=== PATIENT | male | born 1960 | race African-American/Black ===

== ENCOUNTER 2016-10-17 03:37 | Inpatient (IN) | payer OTHER ==
[~2016-10-17] VITALS: Ht 175.3 cm; Wt 83.7 kg
[~2016-10-17 03:37] MED LIST: Ecotrin PO; Norvasc PO; Pravachol PO; Zestril,Prinivil PO; Zocor PO
[2016-10-17 04:57] LABS: HEMATOCRIT 35.3 % (38.0-50.0); MCH 30.6 PG (29.0-34.0); MCHC 32.3 G/DL (30.0-36.0); MCV 94.9 FL (86-99); MEAN PLAT.VOLUME 10.5 uM^3 (9.0-12.4); PLATELET COUNT 297 K/uL (156-360); RBC DIS.WIDTH-CV 12.1 % (11.8-14.6); RBC DIS.WIDTH-SD 42.1 % (39-53); RED BLOOD COUNT 3.72 M/uL (4.00-5.50); WHITE BLOOD COUNT 5.7 K/uL (4.1-10.2)
[2016-10-17 05:12] LABS: CHLORIDE 105 mEq/L (99-109); POTASSIUM 3.7 mEq/L (3.7-5.4); SODIUM 136 mEq/L (136-147)
[2016-10-17 05:13] LABS: GLUCOSE 98 mg/dL (70-99)
[2016-10-17 05:15] LABS: ANION GAP 6 MEQ/L (2-14)
[2016-10-17 05:17] LABS: GFR ESTIMATE (CALCULATED) > 59 mL/min/
[2016-10-17 05:18] LABS: UREA NITROGEN (BUN) 16 mg/dL (9-23)
[2016-10-17 05:38] LABS: TOTAL BILIRUBIN 0.9 mg/dL (0.0-1.0)
[2016-10-17 05:39] LABS: ALKALINE PHOSPHATASE 55 IU/L (3-129)
[2016-10-17 05:42] LABS: DIRECT BILIRUBIN 0.2 mg/dL (0.0-0.3)
[2016-10-17 05:43] LABS: LIPASE 12 U/L (1.0-51.0); TROP-I INTERPRETATION NEGATIVE; TROPONIN-I < 0.01 ng/mL (0.0-0.30)
[2016-10-17 05:46] LABS: INTER. NORMALIZED RATIO 1.1; PTT 28.9 (25-32)
[2016-10-17 08:46] LABS: ADD MIUA? YES; BILIRUBIN NEGATIVE; BLOOD SMALL; COLOR YELLOW ((YELLOW)); GLUCOSE (STRIP) NEGATIVE; KETONES NEGATIVE; LEUKOCYTES NEGATIVE; NITRITE NEGATIVE; PROTEIN (STRIP) NEGATIVE; SPECIFIC GRAVITY 1.015 (1.000-1.030); UROBILINOGEN 0.2 MG/DL (0.2-1.0)
[2016-10-17 08:50] LABS: BACTERIA NONE SEEN /HPF; EPITHELIAL CELLS NONE SEEN /HPF; MUCUS TRACE /LPF; UCUL ADDED? NO; WHITE BLOOD CELLS 0-5 /HPF (0-5)
[2016-10-17 09:26] LABS: HDL CHOLESTEROL 42 MG/DL (Desirable>=40); LDL CHOLESTEROL 195 mg/dL (Desirable<100); NON-HDL CHOLESTEROL 210 mg/dL (Desirable<160); TOTAL CHOLESTEROL 252 mg/dL (Desirable<200); TRIGLYCERIDES 76 MG/DL (Normal: <150)
[2016-10-17 09:32] LABS: Estimated Average Glucose 94 mg/dL (70-123); HEMOGLOBIN A1c (GLYCOHEMOGLOB) 4.9 % HGB (Below 5.7)
[2016-10-17 13:50] VITALS: BP 152/77
[2016-10-17 19:27] VITALS: BP 123/78
[2016-10-17 23:41] VITALS: BP 141/89
[2016-10-18 03:28] VITALS: BP 159/95
[2016-10-18 06:48] LABS: HEMATOCRIT 39.4 % (38.0-50.0); MCH 30.6 PG (29.0-34.0); MCV 98.7 FL (86-99); RBC DIS.WIDTH-SD 43.7 % (39-53); RED BLOOD COUNT 3.99 M/uL (4.00-5.50); WHITE BLOOD COUNT 4.6 K/uL (4.1-10.2)
[2016-10-18 07:28] VITALS: BP 141/88
[2016-10-18 08:17] LABS: MEAN PLAT.VOLUME 11.4 uM^3 (9.0-12.4); PLATELET COUNT 224 K/uL (156-360)
[2016-10-18 11:52] VITALS: BP 138/84
[2016-10-18 15:45] VITALS: BP 140/82
[2016-10-18 19:27] VITALS: BP 131/85
[2016-10-18 23:21] VITALS: BP 142/86
[2016-10-19 03:26] VITALS: BP 143/92
[2016-10-19 08:04] VITALS: BP 152/88
[2016-10-19 16:00] VITALS: BP 136/81
[2016-10-19 20:11] VITALS: BP 132/88
[2016-10-19 23:50] VITALS: BP 140/83
[2016-10-20 03:59] VITALS: BP 147/84
[2016-10-20 08:03] VITALS: BP 162/91
[2016-10-20 11:10] VITALS: BP 116/79
[2016-10-20 15:22] VITALS: BP 131/87
[2016-10-20 20:12] VITALS: BP 136/82
[2016-10-21] VITALS: BP 150/94
[2016-10-21 04:33] VITALS: BP 150/85
[2016-10-21 08:12] VITALS: BP 142/89
[2016-10-21 16:05] VITALS: BP 135/79
[2016-10-21 23:47] VITALS: BP 127/84
[2016-10-22 07:38] VITALS: BP 134/64
[2016-10-22 15:16] VITALS: BP 122/70
[2016-10-23] VITALS: BP 124/84
[2016-10-23 07:24] VITALS: BP 120/80
[2016-10-23 09:23] LABS: ANION GAP 8 MEQ/L (2-14); CHLORIDE 104 MEQ/L (99-109); GFR ESTIMATE (CALCULATED) > 59 mL/min/; GLUCOSE 87 mg/dL (70-99); SAMPLE HEMOLYSIS CHECK 1; SAMPLE ICTERIC CHECK 0; SAMPLE LIPEMIA CHECK 0; SODIUM 136 MEQ/L (136-147); UREA NITROGEN (BUN) 19 mg/dL (9-23)
[2016-10-23 09:26] LABS: HEMATOCRIT 39.9 % (38.0-50.0); MCH 30.8 PG (29.0-34.0); MCHC 31.8 G/DL (30.0-36.0); MCV 96.8 FL (86-99); MEAN PLAT.VOLUME 12.3 uM^3 (9.0-12.4); PLATELET COUNT 184 K/uL (156-360); POTASSIUM 4.6 MEQ/L (3.7-5.4); RBC DIS.WIDTH-CV 12.4 % (11.8-14.6); RBC DIS.WIDTH-SD 44.2 % (39-53); RED BLOOD COUNT 4.12 M/uL (4.00-5.50); WHITE BLOOD COUNT 4.9 K/uL (4.1-10.2)
[2016-10-23 15:12] VITALS: BP 127/78
[2016-10-23 23:39] VITALS: BP 129/84
[2016-10-24 07:15] VITALS: BP 145/85
[2016-10-24] MEDS ORDERED: ATORVASTATIN CA40 MG PO (12:12)
[2016-10-24] MEDS ORDERED: ASPIR-LOW81 MG PO (12:12)
[2016-10-24] MEDS ORDERED: LISINOPRIL10 MG PO (12:12)
[2016-10-24] MEDS ORDERED: CLOPIDOGREL75 MG PO (12:12)
[2016-10-24 15:28] VITALS: BP 125/66
[2016-10-24] MEDS ORDERED: LOVENOX40 MG/0.4 SC (17:49)
[2016-10-24] MEDS ORDERED: MIRALAX17 GM PO ×2 (17:49→17:50)
== END 2016-10-24 16:32 | DRG 65 ==
LOC: EME 03:37 → 5SOUTH 07:35 → EDOF 07:35 → 5SOUTH 13:40
PROVIDERS: Emergency Medicine; Internal Medicine; Nurse Practitioner Adult Health
DX: I63.9 Cerebral infarction, unspecified (principal); G81.94 Hemiplegia, unspecified affecting left nondominant side; E11.9 Type 2 diabetes mellitus without complications; I10 Essential (primary) hypertension; E78.5 Hyperlipidemia, unspecified; R94.31 Abnormal electrocardiogram [ECG] [EKG]; F70 Mild intellectual disabilities; K21.9 Gastro-esophageal reflux disease without esophagitis; R29.810 Facial weakness; Z87.891 Personal history of nicotine dependence; Z88.2 Allergy status to sulfonamides
CPT/HCPCS: 70450; 70551; 71020; 80048; 80061; 80076; 81003; 83036; 83690; 84484; 85027; 85610; 85730; 92610 GN; 93005; 93306; 93880; 97530 GO; 97530 GP; 99281; 99285; J1650

== ENCOUNTER 2016-10-24 16:13 | Inpatient (IN) | payer OTHER ==
[~2016-10-24] VITALS: Ht 175.3 cm; Wt 82.6 kg
[~2016-10-24 16:13] MED LIST changes: +ASPIR-LOW81 MG PO; +ATORVASTATIN CA40 MG PO; +CLOPIDOGREL75 MG PO; +LISINOPRIL10 MG PO
[2016-10-24 16:45] VITALS: BP 130/19
[2016-10-24] MEDS ORDERED: MIRALAX17 GM PO ×2 (17:49→17:50)
[2016-10-24] MEDS ORDERED: LOVENOX40 MG/0.4 SC (17:49)
[2016-10-24 23:57] VITALS: BP 118/81
[2016-10-25 05:22] VITALS: BP 132/82
[2016-10-25 05:55] LABS: HEMATOCRIT 36.7 % (38.0-50.0); MCH 31.4 PG (29.0-34.0); MCHC 32.4 G/DL (30.0-36.0); MCV 96.8 FL (86-99); MEAN PLAT.VOLUME 11.5 uM^3 (9.0-12.4); PLATELET COUNT 182 K/uL (156-360); RBC DIS.WIDTH-CV 12.1 % (11.8-14.6); RBC DIS.WIDTH-SD 43.1 % (39-53); RED BLOOD COUNT 3.79 M/uL (4.00-5.50); WHITE BLOOD COUNT 5.2 K/uL (4.1-10.2)
[2016-10-25 06:23] LABS: ALKALINE PHOSPHATASE 57 IU/L (3-129); ANION GAP 7 MEQ/L (2-14); CHLORIDE 105 MEQ/L (99-109); GFR ESTIMATE (CALCULATED) > 59 mL/min/; GLUCOSE 88 mg/dL (70-99); POTASSIUM 4.3 MEQ/L (3.7-5.4); SAMPLE HEMOLYSIS CHECK 0; SAMPLE ICTERIC CHECK 0; SAMPLE LIPEMIA CHECK 0; SODIUM 140 MEQ/L (136-147); TOTAL BILIRUBIN 0.5 MG/DL (0.0-1.0); UREA NITROGEN (BUN) 17 mg/dL (9-23)
[2016-10-25 15:36] VITALS: BP 118/80
[2016-10-26 05:32] VITALS: BP 104/75
[2016-10-26 15:15] VITALS: BP 109/68
[2016-10-27 05:58] VITALS: BP 122/80
[2016-10-27 15:40] VITALS: BP 115/76
[2016-10-28 15:48] VITALS: BP 123/80
[2016-10-29 05:33] VITALS: BP 136/87
[2016-10-29 15:04] VITALS: BP 113/65
[2016-10-30 05:12] VITALS: BP 143/87
[2016-10-30 15:07] VITALS: BP 109/73
[2016-10-31 05:01] VITALS: BP 127/90
[2016-10-31 15:28] VITALS: BP 150/87
[2016-11-01 04:51] VITALS: BP 142/876
[2016-11-01 06:33] LABS: BASOPHIL COUNT 0.1 K/uL (0-0.1); EOSINOPHIL (%) 2.1 % (0-5); EOSINOPHIL COUNT 0.1 K/uL (0-0.3); HEMATOCRIT 42.9 % (38.0-50.0); IMMATURE GRANULOCYTE (%) 0.2 % (0.0-0.7); MCH 30.1 PG (29.0-34.0); MCHC 31.5 G/DL (30.0-36.0); MCV 95.5 FL (86-99); MEAN PLAT.VOLUME 11.4 uM^3 (9.0-12.4); MONOCYTE (%) 9.8 % (3-12); MONOCYTE COUNT 0.6 K/uL (0-0.8); NEUTROPHIL (%) 52.3 % (45-76); PLATELET COUNT 204 K/uL (156-360); RBC DIS.WIDTH-CV 11.9 % (11.8-14.6); RED BLOOD COUNT 4.49 M/uL (4.00-5.50); WHITE BLOOD COUNT 5.8 K/uL (4.1-10.2)
[2016-11-01 07:04] LABS: ALKALINE PHOSPHATASE 67 IU/L (3-129); ANION GAP 11 MEQ/L (2-14); CHLORIDE 104 MEQ/L (99-109); GFR ESTIMATE (CALCULATED) > 59 mL/min/; GLUCOSE 88 mg/dL (70-99); POTASSIUM 4.6 MEQ/L (3.7-5.4); SAMPLE HEMOLYSIS CHECK 1; SAMPLE ICTERIC CHECK 0; SAMPLE LIPEMIA CHECK 0; SODIUM 138 MEQ/L (136-147); TOTAL BILIRUBIN 0.4 MG/DL (0.0-1.0); UREA NITROGEN (BUN) 19 mg/dL (9-23)
[2016-11-01 15:35] VITALS: BP 123/81
[2016-11-02 05:59] VITALS: BP 117/70
[2016-11-02 15:38] VITALS: BP 108/71
[2016-11-03 05:19] VITALS: BP 124/81
[2016-11-03 16:22] VITALS: BP 111/69
[2016-11-04 05:12] VITALS: BP 145/87
[2016-11-04] MEDS ORDERED: MIRALAX17 GM PO (12:09)
[2016-11-04] MEDS ORDERED: SENNA PLUS TAB1 EACH PO (12:09)
[2016-11-04] MEDS ORDERED: CLOPIDOGREL75 MG PO (12:23)
[2016-11-04] MEDS ORDERED: ATORVASTATIN CA40 MG PO (12:23)
[2016-11-04] MEDS ORDERED: LISINOPRIL10 MG PO (12:23)
[2016-11-04] MEDS ORDERED: ASPIR-LOW81 MG PO (13:13)
[2016-11-04 16:18] VITALS: BP 115/75
== END 2016-11-04 17:04 | disposition home health service (06) | DRG 57 ==
LOC: 3WEST 16:13
PROVIDERS: Physical Medicine & Rehabilitation Pain Medicine; Psychiatry & Neurology Neurology
PROC: F07M0ZZ Range of Motion and Joint Mobility Treatment of Musculoskeletal System - Whole Body (ICD-10-PCS; principal; 2016-10-24)
DX: I69.354 Hemiplegia and hemiparesis following cerebral infarction affecting left non-dominant side (principal); I07.1 Rheumatic tricuspid insufficiency; I10 Essential (primary) hypertension; E78.5 Hyperlipidemia, unspecified; R26.9 Unspecified abnormalities of gait and mobility; F79 Unspecified intellectual disabilities; G40.909 Epilepsy, unspecified, not intractable, without status epilepticus; I51.7 Cardiomegaly; K04.7 Periapical abscess without sinus; M47.814 Spondylosis without myelopathy or radiculopathy, thoracic region; R94.31 Abnormal electrocardiogram [ECG] [EKG]; R01.1 Cardiac murmur, unspecified; K02.9 Dental caries, unspecified; I69.312 Visuospatial deficit and spatial neglect following cerebral infarction
CPT/HCPCS: 80053; 85025; 85027; 85651; 86140; 87040; 97110 GO; 97530 GP; J1650

== ENCOUNTER 2016-12-23 12:48 | Inpatient (IN) | payer OTHER ==
[~2016-12-23] VITALS: Ht 177.8 cm; Wt 79.9 kg
[~2016-12-23 12:48] MED LIST changes: +LOVENOX40 MG/0.4 SC; +MIRALAX17 GM PO; +SENNA PLUS TAB1 EACH PO
[2016-12-23 13:28] LABS: EOSINOPHIL (%) 0.3 % (0-5); HEMATOCRIT 38.1 % (38.0-50.0); IMMATURE GRANULOCYTE (%) 0.4 % (0.0-0.7); LYMPHOCYTE COUNT 1.1 K/uL (1.0-2.8); MCH 30.5 PG (29.0-34.0); MCHC 32.5 G/DL (30.0-36.0); MCV 93.6 FL (86-99); MEAN PLAT.VOLUME 11.2 uM^3 (9.0-12.4); MONOCYTE (%) 6.3 % (3-12); MONOCYTE COUNT 0.6 K/uL (0-0.8); NEUTROPHIL (%) 81.4 % (45-76); PLATELET COUNT 149 K/uL (156-360); RBC DIS.WIDTH-CV 11.8 % (11.8-14.6); RBC DIS.WIDTH-SD 40.8 % (39-53); RED BLOOD COUNT 4.07 M/uL (4.00-5.50); WHITE BLOOD COUNT 9.9 K/uL (4.1-10.2)
[2016-12-23 13:42] LABS: CHLORIDE 104 mEq/L (99-109); POTASSIUM 4.4 mEq/L (3.7-5.4); SODIUM 135 mEq/L (136-147)
[2016-12-23 13:45] LABS: GLUCOSE 111 mg/dL (70-99)
[2016-12-23 13:46] LABS: ANION GAP 10 MEQ/L (2-14); TOTAL BILIRUBIN 0.4 mg/dL (0.0-1.0)
[2016-12-23 13:47] LABS: SERUM ETHYL ALCOHOL < 10 mg/dL
[2016-12-23 13:48] LABS: ALKALINE PHOSPHATASE 64 IU/L (3-129); GFR ESTIMATE (CALCULATED) > 59 mL/min/
[2016-12-23 13:49] LABS: UREA NITROGEN (BUN) 18 mg/dL (9-23)
[2016-12-23 13:55] LABS: TROP-I INTERPRETATION NEGATIVE; TROPONIN-I < 0.01 ng/mL (0.0-0.30)
[2016-12-23 17:23] VITALS: BP 164/107
[2016-12-23 20:09] VITALS: BP 178/101
[2016-12-23 20:33] LABS: TROP-I INTERPRETATION NEGATIVE; TROPONIN-I < 0.01 ng/mL (0.0-0.30)
[2016-12-23 22:40] VITALS: BP 180/102
[2016-12-23 23:49] VITALS: BP 138/85
[2016-12-24] VITALS (8 sets, daily range): BP systolic 140–203; BP diastolic 72–136
[2016-12-24 01:52] LABS: TROP-I INTERPRETATION NEGATIVE; TROPONIN-I < 0.01 ng/mL (0.0-0.30)
[2016-12-24 03:13] LABS: ADD MIUA? NO; BILIRUBIN NEGATIVE; BLOOD NEGATIVE; COLOR YELLOW ((YELLOW)); GLUCOSE (STRIP) NEGATIVE; KETONES 20; LEUKOCYTES NEGATIVE; NITRITE NEGATIVE; PROTEIN (STRIP) NEGATIVE; SPECIFIC GRAVITY 1.019 (1.000-1.030); UCUL ADDED? NO; UROBILINOGEN 0.2 MG/DL (0.2-1.0)
[2016-12-24 03:33] LABS: AMPHETAMINES QUANT VALUE 0 NG/ML; BARBITUATES QUANT VALUE 0 NG/ML; BENZODIAZEPINES QUANT VALUE 0 NG/ML; BENZODIAZEPINES, URINE SCREEN Negative (200 ng/mL); MARIJUANA QUANT VALUE 0 NG/ML; OPIATES QUANTITATIVE VALUE 0 NG/ML; PHENCYCLIDINE QUANT VALUE 0 NG/ML
[2016-12-24 12:10] LABS: HDL CHOLESTEROL 53 MG/DL (Desirable>=40); LDL CHOLESTEROL 176 mg/dL (Desirable<100); NON-HDL CHOLESTEROL 189 mg/dL (Desirable<160); TOTAL CHOLESTEROL 242 mg/dL (Desirable<200); TRIGLYCERIDES 64 MG/DL (Normal: <150)
[2016-12-24 14:58] LABS: Estimated Average Glucose 94 mg/dL (70-123); HEMOGLOBIN A1c (GLYCOHEMOGLOB) 4.9 % HGB (Below 5.7)
[2016-12-24 22:47] LABS: POINT-OF-CARE METER ID UU14162636
[2016-12-24 23:18] LABS: METH RESISTANT S AUREUS PCR NEGATIVE (NEGATIVE)
[2016-12-24 23:19] LABS: PROBE CHECK PASS; SPECIMEN PROCESSING CONTROL PASS
[2016-12-25] VITALS (15 sets, daily range): BP systolic 109–189; BP diastolic 63–113
[2016-12-25 02:41] LABS: BASE EXCESS -1.8 mEq/L (-3 to +3); BICARBONATE 22.1 mEq/L (22-26); CARBOXY HGB 4.9 % (0-5); PCO2 34 mm Hg (35-45); PO2 247 mm Hg (80-100); pH 7.42 (7.35-7.45)
[2016-12-25 02:42] LABS: COMMENTS - BLOOD GASES A+C+; DEVICE 980VENT; FI02 80 %; MECHANICAL RATE 25 resp/min; MODE AC; PEEP 5 CM/H20; SITE LR; TIDAL VOLUME 500 ML; TOTAL RESP RATE 25 resp/min
[2016-12-25 09:29] LABS: HEMATOCRIT 36.9 % (38.0-50.0); MCH 30.9 PG (29.0-34.0); MCHC 33.1 G/DL (30.0-36.0); MCV 93.4 FL (86-99); MEAN PLAT.VOLUME 11.7 uM^3 (9.0-12.4); PLATELET COUNT 180 K/uL (156-360); RBC DIS.WIDTH-CV 12.2 % (11.8-14.6); RBC DIS.WIDTH-SD 41.8 % (39-53); RED BLOOD COUNT 3.95 M/uL (4.00-5.50); WHITE BLOOD COUNT 27.7 K/uL (4.1-10.2)
[2016-12-25 09:59] LABS: ANION GAP 10 MEQ/L (2-14); CHLORIDE 109 MEQ/L (99-109); GFR ESTIMATE (CALCULATED) > 59 mL/min/; GLUCOSE 142 mg/dL (70-99); POTASSIUM 3.9 MEQ/L (3.7-5.4); SAMPLE HEMOLYSIS CHECK 0; SAMPLE ICTERIC CHECK 0; SAMPLE LIPEMIA CHECK 0; SODIUM 142 MEQ/L (136-147); UREA NITROGEN (BUN) 13 mg/dL (9-23)
[2016-12-25 10:24] LABS: ABS NEUTROPHIL COUNT 25.8; BAND NEUTROPHILS 2.6 % (0-8.0); BASOPHILS 0.5 %; EOSINOPHIL ABS CT 0; INSTRUMENT ABS NEUTROPHIL CT 25.6 K/uL; LYMPHOCYTES 2.6 % (15.0-45.0); SEG.NEUTROPHILS 90.4 % (46.0-76.0); SMUDGE CELLS 0.4
[2016-12-25 11:38] LABS: BASE EXCESS 1.7 mEq/L (-3 to +3); BICARBONATE 22.5 mEq/L (22-26); CARBOXY HGB 1.8 % (0-5); METHEMOGLOBIN 2.1 % (0-1.5)
[2016-12-25 11:39] LABS: DEVICE VENTILATOR; FI02 0.65 %; MECHANICAL RATE 25 resp/min; MODE AC; PCO2 24 mm Hg (35-45); PO2 276 mm Hg (80-100); SITE A LINE; TOTAL RESP RATE 25 resp/min; pH 7.58 (7.35-7.45)
[2016-12-25 11:40] LABS: COMMENTS - BLOOD GASES C+; PEEP 5 CM/H20; TIDAL VOLUME 500 ML
[2016-12-25 14:00] LABS: BASE EXCESS 1.2 mEq/L (-3 to +3); BICARBONATE 22.4 mEq/L (22-26); CARBOXY HGB 1.5 % (0-5); PCO2 25 mm Hg (35-45); PO2 260 mm Hg (80-100)
[2016-12-25 14:01] LABS: COMMENTS - BLOOD GASES C+; DEVICE VENTILATOR; FI02 0.65 %; MECHANICAL RATE 20 resp/min; MODE AC; PEEP 5 CM/H20; SITE A LINE; TIDAL VOLUME 500 ML; TOTAL RESP RATE 20 resp/min; pH 7.56 (7.35-7.45)
[2016-12-25 16:04] LABS: BASE EXCESS 0.2 mEq/L (-3 to +3); BICARBONATE 23.3 mEq/L (22-26); CARBOXY HGB 1.6 % (0-5); METHEMOGLOBIN 1.9 % (0-1.5); pH 7.47 (7.35-7.45)
[2016-12-25 16:05] LABS: COMMENTS - BLOOD GASES C+; PCO2 32 mm Hg (35-45); PO2 194 mm Hg (80-100); SITE A LINE
[2016-12-25 16:07] LABS: DEVICE VENTILATOR; FI02 50 %; MECHANICAL RATE 16 resp/min; MODE AC; PEEP 5 CM/H20; TIDAL VOLUME 500 ML; TOTAL RESP RATE 16 resp/min
[2016-12-25 20:09] LABS: BASOPHIL COUNT 0.1 K/uL (0-0.1); EOSINOPHIL (%) 0 % (0-5); HEMATOCRIT 33.2 % (38.0-50.0); IMMATURE GRANULOCYTE (%) 0.4 % (0.0-0.7); IMMATURE GRANULOCYTE COUNT 0.1 K/uL; INSTRUMENT ABS NEUTROPHIL CT 16.8 K/uL; LYMPHOCYTE COUNT 1.2 K/uL (1.0-2.8); MCH 31.2 PG (29.0-34.0); MCHC 33.1 G/DL (30.0-36.0); MCV 94.1 FL (86-99); MEAN PLAT.VOLUME 11.7 uM^3 (9.0-12.4); MONOCYTE COUNT 1.6 K/uL (0-0.8); NEUTROPHIL (%) 85.2 % (45-76); NEUTROPHIL COUNT 16.8 K/uL (1.8-6.4); PLATELET COUNT 162 K/uL (156-360); RBC DIS.WIDTH-CV 12.5 % (11.8-14.6); RED BLOOD COUNT 3.53 M/uL (4.00-5.50); WHITE BLOOD COUNT 19.7 K/uL (4.1-10.2)
[2016-12-25 20:36] LABS: ANION GAP 10 MEQ/L (2-14); CHLORIDE 112 MEQ/L (99-109); GFR ESTIMATE (CALCULATED) > 59 mL/min/; GLUCOSE 131 mg/dL (70-99); POTASSIUM 3.6 MEQ/L (3.7-5.4); SAMPLE HEMOLYSIS CHECK 0; SAMPLE ICTERIC CHECK 0; SAMPLE LIPEMIA CHECK 0; SODIUM 141 MEQ/L (136-147); UREA NITROGEN (BUN) 12 mg/dL (9-23)
[2016-12-26 04:44] LABS: BASOPHIL COUNT 0.1 K/uL (0-0.1); EOSINOPHIL (%) 0.1 % (0-5); HEMATOCRIT 33.9 % (38.0-50.0); IMMATURE GRANULOCYTE (%) 0.5 % (0.0-0.7); IMMATURE GRANULOCYTE COUNT 0.1 K/uL; INSTRUMENT ABS NEUTROPHIL CT 15.5 K/uL; LYMPHOCYTE COUNT 1.8 K/uL (1.0-2.8); MCH 30.3 PG (29.0-34.0); MCHC 32.2 G/DL (30.0-36.0); MCV 94.2 FL (86-99); MEAN PLAT.VOLUME 11.9 uM^3 (9.0-12.4); MONOCYTE (%) 7.4 % (3-12); MONOCYTE COUNT 1.4 K/uL (0-0.8); NEUTROPHIL COUNT 15.5 K/uL (1.8-6.4); PLATELET COUNT 162 K/uL (156-360); RBC DIS.WIDTH-CV 12.7 % (11.8-14.6); RBC DIS.WIDTH-SD 43.8 % (39-53); WHITE BLOOD COUNT 18.9 K/uL (4.1-10.2)
[2016-12-26 08:39] LABS: BASOPHIL COUNT 0.1 K/uL (0-0.1); EOSINOPHIL (%) 0.1 % (0-5); HEMATOCRIT 34.2 % (38.0-50.0); IMMATURE GRANULOCYTE (%) 0.5 % (0.0-0.7); IMMATURE GRANULOCYTE COUNT 0.1 K/uL; INSTRUMENT ABS NEUTROPHIL CT 14.6 K/uL; LYMPHOCYTE COUNT 1.7 K/uL (1.0-2.8); MCH 31.5 PG (29.0-34.0); MCV 95.3 FL (86-99); MONOCYTE (%) 7.2 % (3-12); MONOCYTE COUNT 1.3 K/uL (0-0.8); NEUTROPHIL (%) 82.3 % (45-76); NEUTROPHIL COUNT 14.6 K/uL (1.8-6.4); PLATELET COUNT 156 K/uL (156-360); RBC DIS.WIDTH-CV 12.9 % (11.8-14.6); RBC DIS.WIDTH-SD 44.5 % (39-53); RED BLOOD COUNT 3.59 M/uL (4.00-5.50); WHITE BLOOD COUNT 17.8 K/uL (4.1-10.2)
[2016-12-26 09:00] VITALS: BP 164/97
[2016-12-26 09:03] LABS: ANION GAP 8 MEQ/L (2-14); CHLORIDE 117 MEQ/L (99-109); GFR ESTIMATE (CALCULATED) > 59 mL/min/; GLUCOSE 129 mg/dL (70-99); POTASSIUM 3.5 MEQ/L (3.7-5.4); SAMPLE HEMOLYSIS CHECK 0; SAMPLE ICTERIC CHECK 0; SAMPLE LIPEMIA CHECK 0; UREA NITROGEN (BUN) 10 mg/dL (9-23)
[2016-12-26 09:13] LABS: SODIUM 149 MEQ/L (136-147)
[2016-12-26 16:00] VITALS: BP 108/81
[2016-12-26 17:09] LABS: BASE EXCESS 5.9 mEq/L (-3 to +3); BICARBONATE 30.6 mEq/L (22-26); CARBOXY HGB 2.3 % (0-5); COMMENTS - BLOOD GASES C+; DEVICE VENT; FI02 40 %; MECHANICAL RATE 3 resp/min; METHEMOGLOBIN 1.6 % (0-1.5); MODE AC; PCO2 44 mm Hg (35-45); PO2 149 mm Hg (80-100); SITE ALINE; TIDAL VOLUME 500 ML; TOTAL RESP RATE 8 resp/min; pH 7.45 (7.35-7.45)
[2016-12-26 17:10] LABS: PEEP 5 CM/H20
[2016-12-26 18:00] VITALS: BP 79/49
[2016-12-26 19:00] VITALS: BP 48/36
[2016-12-26 20:29] LABS: ANION GAP 5 MEQ/L (2-14); CHLORIDE 119 MEQ/L (99-109); GLUCOSE 115 mg/dL (70-99); SAMPLE HEMOLYSIS CHECK 0; SAMPLE ICTERIC CHECK 0; SAMPLE LIPEMIA CHECK 0; SODIUM 156 MEQ/L (136-147); UREA NITROGEN (BUN) 12 mg/dL (9-23)
[2016-12-26 20:34] LABS: GFR ESTIMATE (CALCULATED) 45 mL/min/; POTASSIUM 4.7 MEQ/L (3.7-5.4)
== END 2016-12-26 23:51 | DRG 23 ==
LOC: EME → EDBD 12:48 → EDOF 14:33 → ENRESERV 14:41 → 5SOUTH 16:56 → 4WEST 12-24 14:19 → 5SOUTH 12-24 14:19 → ENRESERV 12-24 21:18 → 5SOUTH 12-24 21:20 → ENRESERV 12-24 21:30 → 4WEST 12-24 21:38
PROVIDERS: Emergency Medicine; Internal Medicine; Internal Medicine Critical Care Medicine
DX: I63.311 Cerebral infarction due to thrombosis of right middle cerebral artery (principal); G93.5 Compression of brain; G93.6 Cerebral edema; E11.9 Type 2 diabetes mellitus without complications; I10 Essential (primary) hypertension; K21.9 Gastro-esophageal reflux disease without esophagitis; G40.909 Epilepsy, unspecified, not intractable, without status epilepticus; I34.0 Nonrheumatic mitral (valve) insufficiency; R40.2433 Glasgow coma scale score 3-8, at hospital admission; E78.5 Hyperlipidemia, unspecified; G93.40 Encephalopathy, unspecified; J96.00 Acute respiratory failure, unspecified whether with hypoxia or hypercapnia; I69.354 Hemiplegia and hemiparesis following cerebral infarction affecting left non-dominant side; F70 Mild intellectual disabilities; Z79.82 Long term (current) use of aspirin; Z87.891 Personal history of nicotine dependence; Z79.02 Long term (current) use of antithrombotics/antiplatelets
CPT/HCPCS: 36600; 36620; 70450; 71010; 80048; 80048 91; 80053; 80061; 80306 90; 81003; 82140; 82803; 82948; 83036; 83605; 83930; 84295; 84443; 84484; 85025; 85025 91; 86900; 86901; 86920; 87070; 87205; 87641; 93005; 93306; 94002; 94003; 99281; 99285; C1713; G0378; G0480; J0153; J0360; J0690; J1650; J1953; J2060; J2250; J2704; J3010; J7030; J7042; J7050; S0028